=== PATIENT | female | born 1965 | race Caucasian/White ===

== ENCOUNTER → 2021-07-29 | Outpatient (CLI) | payer OTHER ==
--- NOTE | 2021-08-11 17:27 | SLE ---
[facility] [place] [address] POLYSOMNOGRAPHY STUDY Name: MATEUSZ RAE Room #: REG RAMYA .Netta.#: [id number] Admission: 07/29/21 Attend Phys: Sivakumar Koo MD Discharge: Date of : 61 Report #: [id number] THIS REPORT FOR: cc: Dragan Deras MD, David A. MD Khan, Aman U. MD ~ cc: Bruce Stallings MD DATE OF SERVICE: 07/29/2021 SLEEP STUDY ATTENDING PHYSICIAN: Bruce Stallings M.D. The patient is 55 years old who weighs 176 pounds with a BMI of 31.2. The patient's [place] score was 6. The patient had a recent home sleep study and was found to have severe SHERI and AHI of 44 per hour. The patient was referred for in-lab CPAP titration study. During the night study, the patient spent 451 minutes in bed and slept for 436 minutes with an excellent sleep efficiency of 97%. Sleep latency was 1.9 minutes with a REM latency of 145 minutes. Sleep architecture showed normal stage 1 sleep, increased to stage 2 sleep, normal slow wave and slightly reduced REM sleep, which was 15% of the total sleep time. EKG monitoring revealed an average heart rate of 76 beats per minute. No sustained arrhythmias observed. PLMs were seen at an index of 5 per hour and 2 per hour caused EEG arousals. The patient was started on CPAP at a pressure of 5 cm water and titrated up to 16 cm of water. At the final pressure, the patient slept for 122 minutes. The patient had supine as well as REM sleep. The patient's AHI was reduced to 10.5 per hour and oxygen saturations remained above 88%. The patient had supine as well as REM sleep. All were obstructive apneas on final pressure. I would recommend 17 cm of water as the final pressure. IMPRESSION: 1. Severe sleep apnea diagnosed by home sleep study. 2. Nocturnal hypoxia secondary to obstructive sleep apnea, but resolved with CPAP. 3. No significant periodic limb movements. RECOMMENDATIONS: 1. CPAP at 17 cm of water should be used on a nightly basis. The patient should have a followup in 4-6 weeks along with review of the download data to [address] [address] POLYSOMNOGRAPHY STUDY Name: MATEUSZ RAE [facility] Room #: REG RAMYA [place]#: [id number] Admission: 07/29/21 Attend Phys: Sivakumar Koo MD Discharge: Date of : 61 Report #: [id number] make sure that the AHI remains less than 5 per hour. 2. Weight loss to the ideal body weight is recommended. 3. Avoid [employer] depressants. 4. Cautioned regarding driving until symptoms of sleep apnea resolve with the use of CPAP. <ELECTRONICALLY SIGNED> By: Sivakumar Koo MD 08/11/21 1727 1630 1734 Sivakumar Koo MD /dulce
== END ==
LOC: SLEEPLAB 12:08
PROVIDERS: ATTEND Internal Medicine Critical Care Medicine
DX: Z01.812 Encounter for preprocedural laboratory examination (principal); Z20.822 Contact with and (suspected) exposure to COVID-19; G47.33 Obstructive sleep apnea (adult) (pediatric)